=== PATIENT | female | born 2000 | race Caucasian/White ===

== ENCOUNTER 2020-11-01 17:22 | Emergency (ER) | payer BC, OTHER ==
[~2020-11-01] VITALS: Ht 175.3 cm; Wt 99.2 kg
[2020-11-01 17:24] VITALS: BP 166/86
--- NOTE | 2020-11-01 18:47 | REPVR ---
PROCEDURE INFORMATION: Exam: CT Head Without Contrast Exam date and time: 11/01/2020 5:50 PM Age: 20 years old Clinical indication: Injury or trauma; Other: Hit head on metal shelf; Blunt trauma (contusions or hematomas); Additional info: Hit head Thursday and still dizzy, AYALA, nausea TECHNIQUE: Imaging protocol: Computed tomography of the head without contrast. Radiation optimization: All CT scans at this facility use at least one of these dose optimization techniques: automated exposure control; mA and/or kV adjustment per patient size (includes targeted exams where dose is matched to clinical indication); or iterative reconstruction. COMPARISON: No relevant prior studies available. FINDINGS: Brain: Normal. No hemorrhage. Unremarkable white matter. No mass effect. Cerebral ventricles: No ventriculomegaly. Bones/joints: Unremarkable. No acute fracture. Paranasal sinuses: Inflammatory changes with retained secretions in the left sphenoid sinus. Mastoid air cells: Visualized mastoid air cells are well aerated. Soft tissues: Unremarkable. IMPRESSION: No acute intracranial findings. Electronically signed by: Kishore So On 11/01/2020 18:48:08 PM
== END 2020-11-01 19:13 | disposition home or self-care (01) ==
LOC: M ED 17:22
DX: S06.0X0A Concussion without loss of consciousness, initial encounter (principal); W22.8XXA Striking against or struck by other objects, initial encounter; Y92.019 Unspecified place in single-family (private) house as the place of occurrence of the external cause; Y93.9 Activity, unspecified; Y99.9 Unspecified external cause status; Z87.891 Personal history of nicotine dependence